=== PATIENT | male | born 1980 | race Caucasian/White ===

== ENCOUNTER 2016-07-08 16:39 | Inpatient (IN) | payer OTHER ==
--- NOTE | 2016-07-08 17:19 | ER Document Report ---
ED Medical Screen (RME) - General Stated Complaint: POSSIBLE SEIZURE Notes: patient yelled out and came to find him convulsing on the floor, no loss of bladder control. decreased appetite, diarrhea over the past couple of days. patient has a ? seizure history but non witnessed not diabetic heart rate 110. I have greeted and performed a rapid initial assessment of this patient. A comprehensive ED assessment and evaluation of the patient, analysis of test results and completion of the medical decision making process will be conducted by additional ED providers. TRAVEL OUTSIDE OF THE [place] IN LAST 30 DAYS: No - Related Data Allergies/Adverse Reactions: No Known Allergies Allergy (Verified 07/08/16 17:16) Past Medical History Psychiatric Medical History: Reports: Hx Anxiety, Hx Depression, Hx Post Traumatic Stress Disorder - Immunizations Hx Diphtheria, Pertussis, Tetanus Vaccination: Yes
[2016-07-08 17:43] LABS: ABSOLUTE LYMPHOCYTES (AUTO) 0.8 10^3/uL (0.5-4.7); ABSOLUTE MONOCYTES (AUTO) 0.9 10^3/uL (0.1-1.4); ABSOLUTE NEUT (AUTO) 7.3 10^3/uL (1.7-8.2); BASOPHILS % (AUTO) 0.2 % (0-2); EOSINOPHILS % (AUTO) 0.3 % (0-6); HEMATOCRIT 46.7 % (37.9-51.0); HEMOGLOBIN 16.1 g/dL (13.5-17.0); HGB HCT DIFFERENCE 1.6; LYMPHOCYTES % (AUTO) 8.8 % (13-45); MEAN CORPUSCULAR HEMOGLOBIN 31.7 pg (27.0-33.4); MEAN CORPUSCULAR HGB CONC 34.6 g/dL (32.0-36.0); MEAN CORPUSCULAR VOLUME 92 fl (80-97); MONOCYTES % (AUTO) 10.1 % (3-13); SEGMENTED NEUTROPHILS % (AUTO) 80.6 % (42-78); WHITE BLOOD COUNT 9.1 10^3/uL (4.0-10.5)
[2016-07-08 18:05] LABS: ALANINE AMINOTRANSFERASE 105 U/L (21-72); ALBUMIN 4.5 g/dL (3.5-5.0); ALKALINE PHOSPHATASE 65 U/L (38-126); ANION GAP 14 (5-19); ASPARTATE AMINO TRANSFERASE 227 U/L (17-59); BILIRUBIN,TOTAL 1.4 mg/dL (0.2-1.3); BLOOD UREA NITROGEN 9 mg/dL (7-20); CALCIUM 10.1 mg/dL (8.4-10.2); CARBON DIOXIDE 25 mmol/L (22-30); CHLORIDE 95 mmol/L (98-107); CREATININE RESULT 0.94 mg/dL (0.52-1.25); GLUCOSE 97 mg/dL (75-110); SODIUM 133.7 mmol/L (137-145); TOTAL PROTEIN 7.3 g/dL (6.3-8.2)
[2016-07-08] MEDS ORDERED: NORMAL SALINE 1000 ML 1,000 ML IV ONE (22:19)
[2016-07-08] MEDS ORDERED: DIAZEPAM INJ 10 MG/2 ML DISP.SYRIN IV ONE ×2 (22:19→23:15)
--- NOTE | 2016-07-08 22:23 | ER Document Report ---
ED General - General Chief Complaint: Probable Seizure Stated Complaint: POSSIBLE SEIZURE Notes: Patient is a 35-year-old male presents for complaint of seizure. I found him down on for shaking. Patient has a history of alcoholism. He is drink every day for last week. They tried to wean him off alcohol today. He had done a while without drinking any beer since this morning. on the floor seizing. Since then he started to have tremors and shakes. No previous history of seizures. No other complaints at this time. He did bite his tongue during the seizure. TRAVEL OUTSIDE OF THE [place] IN LAST 30 DAYS: No - Related Data Allergies/Adverse Reactions: No Known Allergies Allergy (Verified 07/08/16 17:16) Past Medical History - Social History Smoking Status: Current Every Day Smoker Chew tobacco use (# tins/day): Yes Frequency of alcohol use: None Drug Abuse: None Family History: None Patient has suicidal ideation: No Patient has homicidal ideation: No Renal/ Medical History: Denies: Hx Peritoneal Dialysis Psychiatric Medical History: Reports: Hx Anxiety, Hx Depression, Hx Post Traumatic Stress Disorder - Immunizations Hx Diphtheria, Pertussis, Tetanus Vaccination: Yes Review of Systems - Review of Systems Notes: My Normal Review Basic REVIEW OF SYSTEMS: CONSTITUTIONAL : Denies fever, chills, or sweats. Denies recent illness. EENT: Denies eye, ear, throat, or mouth pain or symptoms. Denies nasal or sinus congestion. RESPIRATORY: Denies cough, cold, or chest congestion. Denies shortness of breath, difficulty breathing, or wheezing. GASTROINTESTINAL: Denies abdominal pain. Denies nausea, vomiting, or diarrhea. Denies constipation. Last BM: MUSCULOSKELETAL: Denies neck or back pain or joint pain or swelling. SKIN: Denies rash or skin lesions. NEUROLOGICAL: Denies altered mental status or loss of consciousness. Seizure PSYCHIATRIC: Denies anxiety or stress or depression. ALL OTHER SYSTEMS REVIEWED AND NEGATIVE. Physical Exam - Vital signs Vitals: Temp Pulse BP Pulse Ox 98.4 F 128 H 132/89 H 100 07/08/16 16:54 07/08/16 16:54 07/08/16 16:54 07/08/16 16:54 - Notes Notes: General Appearance: Well nourished, alert, cooperative, anxious: no acute distress, no obvious discomfort. Vitals: reviewed, See vital signs table. Head: no swelling or tenderness to the head Eyes: PERRL, EOMI, Conjuctiva clear Mouth: No decreasd moisture Neck: Supple, no neck tenderness, No thyromegaly Lungs: No wheezing, No rales, No rhonci, No accessory muscle use, good air exchange bilaterally. Heart: Tachycardic rate, Regular rythm, No murmur, no rub Abdomen: Normal BS, soft, No rigidity, No abdominal tenderness, No guarding, no rebound, no abdominal masses, no organomegaly Extremities: strength 5/5 in all extremities, good pulses in all extremities, no swelling or tenderness in the extremities, no edema. Skin: warm, dry, appropriate color, no rash Neuro: speech clear, oriented x 3, normal affect, responds appropriately to questions. Active tremor Course - Vital Signs Vital signs: Temp Pulse Resp BP Pulse Ox 98.4 F 128 H 132/89 H 100 07/08/16 16:54 07/08/16 16:54 07/08/16 16:54 07/08/16 16:54 - Laboratory Result Diagrams: 07/08/16 17:25 07/08/16 17:25 Laboratory results interpreted by me: 07/08/16 07/08/16 07/08/16 17:25 17:25 17:25 RDW 16.0 H Plt Count 140 L Seg Neutrophils % 80.6 H Lymphocytes % 8.8 L Sodium 133.7 L Chloride 95 L Magnesium 2.7 H Total Bilirubin 1.4 H AST 227 H ALT 105 H - Transfer of Care Notes: 07/08/16 23:20 Patient's tremor is improved after the Valium. He is still a bit tachycardic. Given the final goes Valium. I suspect a seizure is related to alcohol withdrawal think that his started trying to wean down his alcohol intake of last 24 hours. When I saw him after reproducible Bactrim he had severe tremor consistent with focal withdrawal and was tachycardic. Tremors since decreased with the Valium. I feel is appropriate to admit the patient being that he's already had seizures from his withdrawal. I did speak with the hospitalist who agrees with the patient. Dictation of this chart was performed using voice recognition software; therefore, there may be some unintended grammatical errors. Discharge - Discharge Clinical Impression: Seizure Alcohol withdrawal Qualifiers: Complication of substance-induced condition: with unspecified complication Qualified Code(s): F10.239 - Alcohol dependence with withdrawal, unspecified Condition: Stable Disposition: ADMITTED OBSERVATION Admitting Provider: Hospitalist Unit Admitted: [facility]
[2016-07-08] MEDS ORDERED: THIAMINE HCL 100 MG in NORMAL SALINE 50 ML IV ONE (23:05)
[2016-07-08] MEDS ORDERED: FOLIC ACID INJ 5 MG/1 ML 10 ML VIAL IV ONE (23:05)
[2016-07-08] MEDS ORDERED: IPRATROPIUM/ALBUTEROL 0.5-2.5 MG/3 ML AMPUL NEB PRN (23:21)
[2016-07-08] MEDS ORDERED: ONDANSETRON HCL INJ/PF 4 MG/2 ML SDV IV PRN (23:21)
[2016-07-08] MEDS ORDERED: THIAMINE HCL INJ 200 MG/2 ML VIAL ONE (23:27)
[2016-07-08] MEDS ORDERED: NORMAL SALINE 1000 ML 1,000 ML IV SCH (23:30)
[2016-07-09] MEDS: LORAZEPAM INJ 2 MG/1 ML VIAL IV SCH ×5 (00:35→23:55)
[2016-07-09] MEDS: LORAZEPAM INJ 2 MG/1 ML VIAL IV PRN ×5 (02:58→22:27)
[2016-07-09] MEDS ORDERED: LORAZEPAM INJ 2 MG/1 ML VIAL ONE ×2 (03:58→04:30)
[2016-07-09] MEDS ORDERED: LORAZEPAM INJ 2 MG/1 ML VIAL IV ONE ×4 (04:00→23:00)
[2016-07-09] MEDS ORDERED: HALOPERIDOL LACTATE INJ 5 MG/1 ML VIAL ONE (04:31)
[2016-07-09] MEDS ORDERED: HALOPERIDOL LACTATE INJ 5 MG/1 ML VIAL IV ONE ×2 (04:45→19:31)
[2016-07-09] MEDS ORDERED: MORPHINE SULFATE 10 MG/ML INJ ONE (04:55)
[2016-07-09] MEDS ORDERED: MORPHINE SULFATE 10 MG/ML INJ IV ONE (05:00)
--- NOTE | 2016-07-09 05:11 | PDOC H&P ---
History of Present Illness Admission Date/PCP: 07/08/16 23:21 Patient complains of: Alcohol withdrawal seizure History of Present Illness: NURIA BECKWITH is a 35 year old male with a past medical history of posttraumatic stress disorder, anxiety and alcohol use of estimated 1/5 per day who had been weaning from alcohol with the assistance of his but became acutely agitated brought to the emergency room for evaluation and had a seizure in the ER waiting room resulting in tongue biting. He is subsequently received 15 mg of Valium, with a break of the seizure with a non-sustained postictal state developing recurrence of severe tachycardia and delirium 2 hours later receiving 12 mg of Ativan, 10 mg of Haldol and 10 mg of morphine with persistent severe agitation he is admitted to the hospitalist for ICU supportive care Past Medical History Cardiac Medical History: Reports: None Pulmonary Medical History: Reports: None EENT Medical History: Reports: None Neurological Medical History: Reports: None Endocrine Medical History: Reports: None Renal/ Medical History: Reports: None Malignancy Medical History: Reports: None GI Medical History: Reports: None Musculoskeltal Medical History: Reports: None Psychiatric Medical History: Reports: Alcohol Dependency, Depression, Post Traumatic Stress Disorder, Tobacco Dependency Social History Information Source: Relative Smoking Status: Current Every Day Smoker Cigarettes Packs Per Day: 0.5 Last Time Smoked: 07/08/16 Frequency of Alcohol Use: Heavy Hx Recreational Drug Use: No Drugs: None Hx Prescription Drug Abuse: No - Advance Directive Resuscitation Status: Full Code Family History Family History: None, Hypertension Parental Family History Reviewed: Yes Children Family History Reviewed: Yes Sibling(s) Family History Reviewed.: Yes Medication/Allergy Home Medications: No Home Medications 02/20/16 Allergies/Adverse Reactions: No Known Allergies Allergy (Verified 07/08/16 17:16) Review of Systems ROS unobtainable: Due to mental status Physical Exam Vital Signs: Temp Pulse Resp BP Pulse Ox 98.7 F 122 H 16 138/73 H 97 07/09/16 02:54 07/09/16 02:54 07/09/16 02:54 07/09/16 02:54 07/09/16 02:54 General appearance: PRESENT: disheveled, severe distress, thin Head exam: PRESENT: atraumatic, normocephalic Eye exam: PRESENT: conjunctiva pink, EOMI, PERRLA. ABSENT: scleral icterus Ear exam: PRESENT: normal external ear exam Mouth exam: PRESENT: other - Tongue laceration Neck exam: ABSENT: carotid bruit, JVD, lymphadenopathy, thyromegaly Respiratory exam: PRESENT: accessory muscle use, clear to auscultation mikey, tachypnea. ABSENT: rales, rhonchi, wheezes Cardiovascular exam: PRESENT: RRR, tachycardia. ABSENT: diastolic murmur, rubs , systolic murmur Pulses: PRESENT: normal dorsalis pedis pul Vascular exam: PRESENT: normal capillary refill GI/Abdominal exam: PRESENT: normal bowel sounds, soft. ABSENT: distended, guarding, mass, organolmegaly, rebound, tenderness Rectal exam: PRESENT: deferred Extremities exam: PRESENT: full ROM. ABSENT: calf tenderness, clubbing, pedal edema Neurological exam: PRESENT: altered, CN II-XII grossly intact Psychiatric exam: PRESENT: agitated, anxious, manic, unusual affect Focused psych exam: PRESENT: flight of ideas, internal stimuli, psychomotor agitation, restlessness Skin exam: PRESENT: dry, intact, warm. ABSENT: cyanosis, rash Assessment & Plan - Diagnosis (1) Alcohol withdrawal Qualifiers: Complication of substance-induced condition: with unspecified complication Qualified Code(s): F10.239 - Alcohol dependence with withdrawal, unspecified Is this a current diagnosis for this admission?: YesPlan: Severe alcohol withdrawal DTs is placed on thiamine folate, Ativan with concern for worsening despite aggressive treatment. Admission to ICU for anticipated intubation for airway protection (2) Seizure Is this a current diagnosis for this admission?: YesPlan: Secondary to alcohol withdrawal No prolonged postictal state and without recurrence continue IV Ativan (3) Tobacco abuse Is this a current diagnosis for this admission?: YesPlan: Tobacco Dependence patient received tobacco cessation counseling and offered nicotine replacement options
[2016-07-09] MEDS: HEPARIN SOD (PORCINE) 5,000 UNIT/ML 1 ML SYRINGE SUBCUT SCH ×2 (05:32→15:29)
[2016-07-09 07:55] LABS: ABSOLUTE EOSINOPHILS # (AUTO) 0.1 10^3/uL (0.0-0.6); ABSOLUTE LYMPHOCYTES (AUTO) 1.1 10^3/uL (0.5-4.7); ABSOLUTE MONOCYTES (AUTO) 0.9 10^3/uL (0.1-1.4); ABSOLUTE NEUT (AUTO) 7.5 10^3/uL (1.7-8.2); BASOPHILS % (AUTO) 0.2 % (0-2); EOSINOPHILS % (AUTO) 1.2 % (0-6); HEMATOCRIT 41.3 % (37.9-51.0); HEMOGLOBIN 14.1 g/dL (13.5-17.0); LYMPHOCYTES % (AUTO) 11.5 % (13-45); MEAN CORPUSCULAR HEMOGLOBIN 31.7 pg (27.0-33.4); MEAN CORPUSCULAR HGB CONC 34.1 g/dL (32.0-36.0); MEAN CORPUSCULAR VOLUME 93 fl (80-97); RED BLOOD COUNT 4.44 10^6/uL (4.35-5.55); RED CELL DISTRIBUTION WIDTH 15.9 % (11.5-14.0); SEGMENTED NEUTROPHILS % (AUTO) 78.1 % (42-78); WHITE BLOOD COUNT 9.7 10^3/uL (4.0-10.5)
[2016-07-09] MEDS ORDERED: IPRATROPIUM/ALBUTEROL 0.5-2.5 MG/3 ML AMPUL NEB SCH (08:00)
[2016-07-09 08:08] LABS: ALANINE AMINOTRANSFERASE 76 U/L (21-72); ALBUMIN 3.4 g/dL (3.5-5.0); ALKALINE PHOSPHATASE 48 U/L (38-126); ANION GAP 9 (5-19); ASPARTATE AMINO TRANSFERASE 132 U/L (17-59); BILIRUBIN,TOTAL 1.3 mg/dL (0.2-1.3); BLOOD UREA NITROGEN 8 mg/dL (7-20); CALCIUM 8.8 mg/dL (8.4-10.2); CARBON DIOXIDE 23 mmol/L (22-30); CHLORIDE 105 mmol/L (98-107); CREATININE RESULT 0.78 mg/dL (0.52-1.25); GLUCOSE 89 mg/dL (75-110); POTASSIUM 3.6 mmol/L (3.6-5.0); SODIUM 137.1 mmol/L (137-145); TOTAL PROTEIN 5.9 g/dL (6.3-8.2)
--- NOTE | 2016-07-09 09:48 | PDOC PROGRESS REPORT ---
Subjective Progress Note for:: 07/09/16 Subjective:: Patient is sedated and is unable to answer questions at this time. He is moving all 4 extremities without difficulty. No tonic-clonic movement Physical Exam Vital Signs: Temp Pulse Resp BP Pulse Ox 98.2 F 96 18 92/67 L 96 07/09/16 08:00 07/09/16 08:00 07/09/16 08:00 07/09/16 08:00 07/09/16 08:00 Intake & Output 07/08/16 07/09/16 07/10/16 06:59 06:59 06:59 Intake Total 0 Output Total 375 Balance 0 -375 Weight 76.8 kg 79.8 kg General appearance: PRESENT: no acute distress, well-developed, well-nourished Head exam: PRESENT: atraumatic, normocephalic Eye exam: PRESENT: conjunctiva pink, EOMI, PERRLA. ABSENT: scleral icterus Ear exam: PRESENT: normal external ear exam Neck exam: ABSENT: carotid bruit, JVD Respiratory exam: PRESENT: clear to auscultation mikey. ABSENT: rales, rhonchi, wheezes Cardiovascular exam: PRESENT: RRR. ABSENT: diastolic murmur, rubs, systolic murmur GI/Abdominal exam: PRESENT: normal bowel sounds, soft. ABSENT: distended, guarding, mass, organolmegaly, rebound, tenderness Extremities exam: ABSENT: calf tenderness, clubbing, pedal edema Neurological exam: PRESENT: other - Patient is sedated but moving all 4 extremities. Psychiatric exam: PRESENT: other - Patient is sedated Skin exam: PRESENT: dry, intact, warm. ABSENT: cyanosis, rash Results Laboratory Results: 07/09/16 07:41 07/09/16 07:41 07/09/16 07/09/16 07:41 07:41 WBC 9.7 RBC 4.44 Hgb 14.1 Hct 41.3 MCV 93 MCH 31.7 MCHC 34.1 RDW 15.9 H Plt Count 117 L Seg Neutrophils % 78.1 H Lymphocytes % 11.5 L Monocytes % 9.0 Eosinophils % 1.2 Basophils % 0.2 Absolute Neutrophils 7.5 Absolute Lymphocytes 1.1 Absolute Monocytes 0.9 Absolute Eosinophils 0.1 Absolute Basophils 0.0 Sodium 137.1 Potassium 3.6 Chloride 105 Carbon Dioxide 23 Anion Gap 9 BUN 8 Creatinine 0.78 Est GFR ( Amer) > 60 Est GFR (Non-Af Amer) > 60 Glucose 89 Calcium 8.8 Total Bilirubin 1.3 AST 132 H ALT 76 H Alkaline Phosphatase 48 Total Protein 5.9 L Albumin 3.4 L Assessment & Plan - Diagnosis (1) Seizure Is this a current diagnosis for this admission?: YesPlan: Patient had an alcohol withdrawal seizure. He said no further seizure activity. We'll continue with Ativan as needed. (2) Alcohol withdrawal Qualifiers: Complication of substance-induced condition: with unspecified complication Qualified Code(s): F10.239 - Alcohol dependence with withdrawal, unspecified Is this a current diagnosis for this admission?: YesPlan: Patient has developed delirium tremens requiring Ativan. He is currently sedated. (3) Tobacco abuse Is this a current diagnosis for this admission?: Yes - Time Time Spent with patient: 25-34 minutes - Inpatient Certification Medical Necessity: Need Close Monitoring Due to Risk of Patient Decompensation
[2016-07-09] MEDS: THIAMINE HCL 100 MG, FOLIC ACID 1 MG in NORMAL SALINE 50 ML IV SCH (11:08)
--- NOTE | 2016-07-09 12:33 | EKG REPORT ---
SEVERITY:- OTHERWISE NORMAL ECG - SINUS TACHYCARDIA BORDERLINE RIGHT AXIS DEVIATION : Confirmed by: Jacob George 09-Jul-2016 12:32:07
[2016-07-09] MEDS ORDERED: NICOTINE 14 MG/24 HR PATCH.TD24 TD ONE (16:00)
[2016-07-09] MEDS: HALOPERIDOL LACTATE INJ 5 MG/1 ML VIAL IV PRN (18:17)
[2016-07-09] MEDS ORDERED: ZIPRASIDONE MESYLATE INJ/PF 20 MG SDV IM ONE (20:30)
[2016-07-09] MEDS ORDERED: DIAZEPAM INJ 10 MG/2 ML DISP.SYRIN ONE (22:29)
[2016-07-09] MEDS ORDERED: DIAZEPAM INJ 10 MG/2 ML DISP.SYRIN IV ONE (23:00)
[2016-07-10] MEDS: LORAZEPAM INJ 2 MG/1 ML VIAL IV PRN ×2 (01:32→20:53)
[2016-07-10] MEDS: HALOPERIDOL LACTATE INJ 5 MG/1 ML VIAL IV PRN ×3 (01:33→20:00)
[2016-07-10 04:50] LABS: ABSOLUTE EOSINOPHILS # (AUTO) 0.1 10^3/uL (0.0-0.6); ABSOLUTE LYMPHOCYTES (AUTO) 1.1 10^3/uL (0.5-4.7); ABSOLUTE MONOCYTES (AUTO) 0.8 10^3/uL (0.1-1.4); ABSOLUTE NEUT (AUTO) 7.2 10^3/uL (1.7-8.2); BASOPHILS % (AUTO) 0.3 % (0-2); EOSINOPHILS % (AUTO) 1.3 % (0-6); HEMATOCRIT 42.6 % (37.9-51.0); HEMOGLOBIN 14.8 g/dL (13.5-17.0); HGB HCT DIFFERENCE 1.8; LYMPHOCYTES % (AUTO) 11.6 % (13-45); MEAN CORPUSCULAR HEMOGLOBIN 32.1 pg (27.0-33.4); MEAN CORPUSCULAR HGB CONC 34.7 g/dL (32.0-36.0); MEAN CORPUSCULAR VOLUME 93 fl (80-97); MONOCYTES % (AUTO) 8.7 % (3-13); RED BLOOD COUNT 4.61 10^6/uL (4.35-5.55); SEGMENTED NEUTROPHILS % (AUTO) 78.1 % (42-78); WHITE BLOOD COUNT 9.3 10^3/uL (4.0-10.5)
[2016-07-10 05:07] LABS: ANION GAP 13 (5-19); BLOOD UREA NITROGEN 5 mg/dL (7-20); CALCIUM 9.3 mg/dL (8.4-10.2); CARBON DIOXIDE 20 mmol/L (22-30); CHLORIDE 106 mmol/L (98-107); CREATININE RESULT 0.75 mg/dL (0.52-1.25); GLUCOSE 81 mg/dL (75-110); POTASSIUM 3.7 mmol/L (3.6-5.0); SODIUM 138.7 mmol/L (137-145)
[2016-07-10] MEDS: LORAZEPAM INJ 2 MG/1 ML VIAL IV SCH ×3 (05:23→18:34)
[2016-07-10] MEDS: HEPARIN SOD (PORCINE) 5,000 UNIT/ML 1 ML SYRINGE SUBCUT SCH ×3 (05:39→22:29)
[2016-07-10] MEDS ORDERED: LORAZEPAM 24 MG/240 ML BAG IV ONE (09:41)
[2016-07-10] MEDS: THIAMINE HCL 100 MG, FOLIC ACID 1 MG in NORMAL SALINE 50 ML IV SCH (10:01)
[2016-07-10] MEDS: LORAZEPAM 24 MG/ D5W 240 ML IV PRN ×4 (10:01→22:34)
[2016-07-10] MEDS: NICOTINE 14 MG/24 HR PATCH.TD24 TD SCH (10:02)
[2016-07-10] MEDS: ZIPRASIDONE MESYLATE INJ/PF 20 MG SDV IM SCH ×2 (10:03→21:02)
--- NOTE | 2016-07-10 12:09 | PDOC PROGRESS REPORT ---
Subjective Progress Note for:: 07/10/16 Subjective:: Patient is more alert today but is still confused. Required 4 point restraint. No tonic-clonic movement Physical Exam Vital Signs: Temp Pulse Resp BP Pulse Ox 97.7 F 84 17 127/79 H 100 07/10/16 11:00 07/10/16 10:00 07/10/16 11:00 07/10/16 10:31 07/10/16 11:00 Intake & Output 07/09/16 07/10/16 07/11/16 06:59 06:59 06:59 Intake Total 0 2220 360 Output Total 2235 120 Balance 0 -15 240 Weight 76.8 kg 78.6 kg General appearance: PRESENT: no acute distress, well-developed, well-nourished Head exam: PRESENT: atraumatic, normocephalic Eye exam: PRESENT: conjunctiva pink. ABSENT: scleral icterus Neck exam: ABSENT: JVD Respiratory exam: PRESENT: clear to auscultation mikey. ABSENT: rales, rhonchi, wheezes Cardiovascular exam: PRESENT: RRR. ABSENT: diastolic murmur, rubs, systolic murmur GI/Abdominal exam: PRESENT: normal bowel sounds, soft. ABSENT: distended, guarding, mass, organolmegaly, rebound, tenderness Extremities exam: ABSENT: calf tenderness, clubbing, pedal edema Neurological exam: PRESENT: awake, oriented to person, CN II-XII grossly intact. ABSENT: oriented to place, oriented to time, oriented to situation, motor sensory deficit Psychiatric exam: PRESENT: flat affect Skin exam: PRESENT: dry, intact, warm. ABSENT: cyanosis, rash Results Laboratory Results: 07/10/16 04:23 07/10/16 04:23 07/10/16 07/10/16 04:23 04:23 WBC 9.3 RBC 4.61 Hgb 14.8 Hct 42.6 MCV 93 MCH 32.1 MCHC 34.7 RDW 16.0 H Plt Count 117 L Seg Neutrophils % 78.1 H Lymphocytes % 11.6 L Monocytes % 8.7 Eosinophils % 1.3 Basophils % 0.3 Absolute Neutrophils 7.2 Absolute Lymphocytes 1.1 Absolute Monocytes 0.8 Absolute Eosinophils 0.1 Absolute Basophils 0.0 Sodium 138.7 Potassium 3.7 Chloride 106 Carbon Dioxide 20 L Anion Gap 13 BUN 5 L Creatinine 0.75 Est GFR ( Amer) > 60 Est GFR (Non-Af Amer) > 60 Glucose 81 Calcium 9.3 Assessment & Plan - Diagnosis (1) Seizure Is this a current diagnosis for this admission?: YesPlan: Patient had an alcohol withdrawal seizure. He said no further seizure activity. We'll continue with Ativan as needed. (2) Alcohol withdrawal Qualifiers: Complication of substance-induced condition: with unspecified complication Qualified Code(s): F10.239 - Alcohol dependence with withdrawal, unspecified Is this a current diagnosis for this admission?: YesPlan: Patient has developed delirium tremens requiring Ativan. He is confused and because of this we will have him involuntary committed for his safety he is trying to leave but is not competent at this time. (3) Tobacco abuse Is this a current diagnosis for this admission?: Yes - Time Time Spent with patient: 25-34 minutes - Inpatient Certification Medical Necessity: Need Close Monitoring Due to Risk of Patient Decompensation - Plan Summary Plan Summary: We will place IVC papers and continue with Ativan and restraints as needed.
--- NOTE | 2016-07-10 15:36 | PSYCHOLOGICAL NOTE ---
Psych Note - Psych Note Psych Note: Patient presented to [facility] ED with a past medical history of posttraumatic stress disorder, anxiety and alcohol use of estimated 1/5 per day who had been weaning from alcohol with the assistance of his but became acutely agitated brought to the emergency room for evaluation and had a seizure in the ER waiting room resulting in tongue biting. Patient states that he had been drinking beer because of the shakes. He continued to disclose that he had for morning. Patient states he is at [facility] ED because he had a seizure. Patient's max Early states that Jordy used to drink about a fifth of day. She continued disclosed that he had been trying to cut down and first cut down to a pint a day and then for the last couple months and had only been drinking beer. She continue to disclosed that he really would drink only to cover up the shakes because he was embarrassed for people to see him shaking. She continue disclosed that she noticed him shaking Tuesday and he had 2 or 3 beers. And then Tuesday he approximately 4 but that he spent threw up afterwards. She disclosed that she was downstairs while he was upstairs because he was not feeling well when she heard him yelling out "like he was in fear." She stated she went into the room and saw him "convulsing on the floor" which lasted approximately 3 minutes long. She disclose that he bit the left side of his tongue. She continued disclosed the patient has been trying to quit however would like inpatient services and that the family has gotten together and upon discharge will be admitting him into rehabilitation facility in [place]. She disclosed that his family is in [place], so they will be close if he needs them. She stated their house here just got an offer so she will be finishing up here in [place] and then moved down to [place] after. The patient states he wants in patient and agrees to the plan. Both patient and patient's ildefonso disclosed the patient has difficulty with PTSD-like symptoms he becomes paranoid in crowds has started to isolate himself and now only leaves home about once a week however sometimes even then he does not leave. The patient stated "they were eyeballing me" when they're in a store so it made him nervous. Patient is semi-alert and orientated to person place and circumstance. Mood and affect is blunted from current medical treatment. Patient denies suicidal homicidal ideation. Patient denies auditory and visual hallucinations; no current delusions are noted. Cognitive processes are blunted from current medical treatment. Conversational speech is low and it is slow rate. Eye contact was poor. 291.81 (F10.239) alcohol withdraw; without perceptual disturbances PTSD per history provided by patient Impression\\plan: Patient is recommended to continue under IVC; patient's cognitive functioning is impaired due to delirium associated with withdrawal from alcohol and his unable to keep himself safe. Patient has a discharge plan set up with his family to transfer straight into inpatient for alcohol abuse in [place]. Dr. Vazquez was consulted on the care and management of this patient; attending physician is in agreement with recommendations and disposition.
[2016-07-11] MEDS: LORAZEPAM 24 MG/ D5W 240 ML IV PRN ×11 (00:16→22:14)
[2016-07-11] MEDS: LORAZEPAM INJ 2 MG/1 ML VIAL IV SCH ×5 (00:18→23:29)
[2016-07-11] MEDS: HALOPERIDOL LACTATE INJ 5 MG/1 ML VIAL IV PRN ×2 (03:12→21:44)
[2016-07-11] MEDS: HEPARIN SOD (PORCINE) 5,000 UNIT/ML 1 ML SYRINGE SUBCUT SCH ×3 (05:28→21:43)
[2016-07-11 07:44] LABS: ANION GAP 13 (5-19); BLOOD UREA NITROGEN 7 mg/dL (7-20); CALCIUM 9.3 mg/dL (8.4-10.2); CARBON DIOXIDE 20 mmol/L (22-30); CHLORIDE 106 mmol/L (98-107); CREATININE RESULT 0.78 mg/dL (0.52-1.25); GLUCOSE 85 mg/dL (75-110); POTASSIUM 3.9 mmol/L (3.6-5.0); SODIUM 138.9 mmol/L (137-145)
[2016-07-11 07:46] LABS: ABSOLUTE EOSINOPHILS # (AUTO) 0.2 10^3/uL (0.0-0.6); ABSOLUTE LYMPHOCYTES (AUTO) 1.2 10^3/uL (0.5-4.7); ABSOLUTE MONOCYTES (AUTO) 0.8 10^3/uL (0.1-1.4); ABSOLUTE NEUT (AUTO) 4.8 10^3/uL (1.7-8.2); BASOPHILS % (AUTO) 0.7 % (0-2); EOSINOPHILS % (AUTO) 2.8 % (0-6); HEMATOCRIT 42.1 % (37.9-51.0); HEMOGLOBIN 14.6 g/dL (13.5-17.0); HGB HCT DIFFERENCE 1.7; LYMPHOCYTES % (AUTO) 16.7 % (13-45); MEAN CORPUSCULAR HGB CONC 34.7 g/dL (32.0-36.0); MEAN CORPUSCULAR VOLUME 92 fl (80-97); MONOCYTES % (AUTO) 11.5 % (3-13); RED BLOOD COUNT 4.56 10^6/uL (4.35-5.55); RED CELL DISTRIBUTION WIDTH 16.1 % (11.5-14.0); SEGMENTED NEUTROPHILS % (AUTO) 68.3 % (42-78)
[2016-07-11] MEDS: LORAZEPAM INJ 2 MG/1 ML VIAL IV PRN (07:55)
[2016-07-11] MEDS: ZIPRASIDONE MESYLATE INJ/PF 20 MG SDV IM SCH ×2 (09:42→21:43)
[2016-07-11] MEDS: THIAMINE HCL 100 MG, FOLIC ACID 1 MG in NORMAL SALINE 50 ML IV SCH (09:43)
[2016-07-11] MEDS: NICOTINE 14 MG/24 HR PATCH.TD24 TD SCH (09:43)
--- NOTE | 2016-07-11 10:55 | PDOC PROGRESS REPORT ---
Subjective Progress Note for:: 07/11/16 Subjective:: Patient is confused. He is on high-dose Ativan drip. Physical Exam Vital Signs: Temp Pulse Resp BP Pulse Ox 97.5 F 80 18 129/89 H 95 07/11/16 10:00 07/11/16 10:00 07/11/16 10:00 07/11/16 10:00 07/11/16 10:00 Intake & Output 07/10/16 07/11/16 07/12/16 06:59 06:59 06:59 Intake Total 2220 1845 Output Total 2235 4730 78 Balance -15 -735 -78 Weight 78.6 kg 80.2 kg General appearance: PRESENT: no acute distress Eye exam: PRESENT: conjunctiva pink. ABSENT: scleral icterus Mouth exam: PRESENT: moist, tongue midline Neck exam: ABSENT: carotid bruit, JVD, lymphadenopathy, thyromegaly Respiratory exam: PRESENT: clear to auscultation mikey. ABSENT: rales, rhonchi, wheezes Cardiovascular exam: PRESENT: RRR. ABSENT: diastolic murmur, rubs, systolic murmur GI/Abdominal exam: PRESENT: normal bowel sounds, soft. ABSENT: distended, guarding, mass, organolmegaly, rebound, tenderness Neurological exam: PRESENT: awake, oriented to person, CN II-XII grossly intact. ABSENT: oriented to place, oriented to time, oriented to situation, motor sensory deficit Skin exam: PRESENT: dry, intact, warm. ABSENT: cyanosis, rash Results Laboratory Results: 07/11/16 04:55 07/11/16 04:55 07/11/16 07/11/16 04:55 04:55 WBC 7.0 RBC 4.56 Hgb 14.6 Hct 42.1 MCV 92 MCH 32.0 MCHC 34.7 RDW 16.1 H Plt Count 149 L Seg Neutrophils % 68.3 Lymphocytes % 16.7 Monocytes % 11.5 Eosinophils % 2.8 Basophils % 0.7 Absolute Neutrophils 4.8 Absolute Lymphocytes 1.2 Absolute Monocytes 0.8 Absolute Eosinophils 0.2 Absolute Basophils 0.0 Sodium 138.9 Potassium 3.9 Chloride 106 Carbon Dioxide 20 L Anion Gap 13 BUN 7 Creatinine 0.78 Est GFR ( Amer) > 60 Est GFR (Non-Af Amer) > 60 Glucose 85 Calcium 9.3 Assessment & Plan - Diagnosis (1) Seizure Is this a current diagnosis for this admission?: YesPlan: Patient had an alcohol withdrawal seizure. He said no further seizure activity. We'll continue with Ativan drip. (2) Alcohol withdrawal Qualifiers: Complication of substance-induced condition: with unspecified complication Qualified Code(s): F10.239 - Alcohol dependence with withdrawal, unspecified Is this a current diagnosis for this admission?: YesPlan: Patient has developed delirium tremens requiring Ativan. Patient has had IVC papers done (3) Tobacco abuse Is this a current diagnosis for this admission?: Yes - Time Time Spent with patient: 25-34 minutes - Inpatient Certification Medical Necessity: Need Close Monitoring Due to Risk of Patient Decompensation - Plan Summary Plan Summary: We'll continue the ICU as long as he is requiring high-dose Ativan drip.
[2016-07-12] MEDS: LORAZEPAM 24 MG/ D5W 240 ML IV PRN ×6 (00:15→18:26)
[2016-07-12 04:52] LABS: ABSOLUTE BASOPHILS # (AUTO) 0.1 10^3/uL (0.0-0.2); ABSOLUTE EOSINOPHILS # (AUTO) 0.2 10^3/uL (0.0-0.6); ABSOLUTE LYMPHOCYTES (AUTO) 1.2 10^3/uL (0.5-4.7); ABSOLUTE MONOCYTES (AUTO) 0.9 10^3/uL (0.1-1.4); ABSOLUTE NEUT (AUTO) 3.7 10^3/uL (1.7-8.2); BASOPHILS % (AUTO) 1.1 % (0-2); EOSINOPHILS % (AUTO) 3.3 % (0-6); HEMATOCRIT 42.9 % (37.9-51.0); HEMOGLOBIN 14.8 g/dL (13.5-17.0); HGB HCT DIFFERENCE 1.5; LYMPHOCYTES % (AUTO) 19.8 % (13-45); MEAN CORPUSCULAR HEMOGLOBIN 31.9 pg (27.0-33.4); MEAN CORPUSCULAR HGB CONC 34.6 g/dL (32.0-36.0); MEAN CORPUSCULAR VOLUME 92 fl (80-97); MONOCYTES % (AUTO) 15.3 % (3-13); RED BLOOD COUNT 4.65 10^6/uL (4.35-5.55); RED CELL DISTRIBUTION WIDTH 15.9 % (11.5-14.0); SEGMENTED NEUTROPHILS % (AUTO) 60.5 % (42-78); WHITE BLOOD COUNT 6.1 10^3/uL (4.0-10.5)
[2016-07-12 05:11] LABS: ANION GAP 12 (5-19); BLOOD UREA NITROGEN 4 mg/dL (7-20); CALCIUM 9.5 mg/dL (8.4-10.2); CARBON DIOXIDE 23 mmol/L (22-30); CHLORIDE 105 mmol/L (98-107); CREATININE RESULT 0.76 mg/dL (0.52-1.25); GLUCOSE 94 mg/dL (75-110); POTASSIUM 3.4 mmol/L (3.6-5.0); SODIUM 139.7 mmol/L (137-145)
[2016-07-12] MEDS: LORAZEPAM INJ 2 MG/1 ML VIAL IV SCH ×4 (05:24→23:23)
[2016-07-12] MEDS: HEPARIN SOD (PORCINE) 5,000 UNIT/ML 1 ML SYRINGE SUBCUT SCH ×3 (06:05→21:16)
[2016-07-12] MEDS: POTASSI CL 20 MEQ/50 ML RIDER 20 MEQ/50 ML RTUPB IV SCH ×2 (09:08→11:35)
[2016-07-12] MEDS: THIAMINE HCL 100 MG, FOLIC ACID 1 MG in NORMAL SALINE 50 ML IV SCH (09:11)
[2016-07-12] MEDS: NICOTINE 14 MG/24 HR PATCH.TD24 TD SCH (09:11)
[2016-07-12] MEDS: ZIPRASIDONE MESYLATE INJ/PF 20 MG SDV IM SCH (10:52)
[2016-07-12] MEDS ORDERED: ACETAMINOPHEN 325 MG TABLET PO PRN (13:59)
[2016-07-12] MEDS ORDERED: OXYCODONE HCL IR 5 MG TABLET PO PRN (13:59)
--- NOTE | 2016-07-12 15:12 | PDOC PROGRESS REPORT ---
Subjective Progress Note for:: 07/12/16 Subjective:: Patient is confused. He is on high-dose Ativan drip. Physical Exam Vital Signs: Temp Pulse Resp BP Pulse Ox 97.4 F 86 21 H 123/96 H 95 07/12/16 14:00 07/12/16 07:40 07/12/16 07:40 07/12/16 07:40 07/12/16 07:40 Intake & Output 07/11/16 07/12/16 07/13/16 06:59 06:59 06:59 Intake Total 2695 2951 356 Output Total 2580 0835 425 Balance 115 -824 -69 Weight 80.2 kg General appearance: PRESENT: no acute distress Eye exam: PRESENT: conjunctiva pink. ABSENT: scleral icterus Mouth exam: PRESENT: moist, tongue midline Neck exam: ABSENT: JVD Respiratory exam: PRESENT: clear to auscultation mikey. ABSENT: rales, rhonchi, wheezes Cardiovascular exam: PRESENT: RRR. ABSENT: diastolic murmur, rubs, systolic murmur GI/Abdominal exam: PRESENT: normal bowel sounds, soft. ABSENT: distended, guarding, mass, organolmegaly, rebound, tenderness Extremities exam: ABSENT: calf tenderness, clubbing, pedal edema Neurological exam: PRESENT: awake, oriented to person, CN II-XII grossly intact. ABSENT: oriented to place, oriented to time, oriented to situation, motor sensory deficit Psychiatric exam: PRESENT: unusual affect Skin exam: PRESENT: dry, intact, warm. ABSENT: cyanosis, rash Results Laboratory Results: 07/12/16 04:13 07/12/16 04:13 07/12/16 07/12/16 04:13 04:13 WBC 6.1 RBC 4.65 Hgb 14.8 Hct 42.9 MCV 92 MCH 31.9 MCHC 34.6 RDW 15.9 H Plt Count 223 Seg Neutrophils % 60.5 Lymphocytes % 19.8 Monocytes % 15.3 H Eosinophils % 3.3 Basophils % 1.1 Absolute Neutrophils 3.7 Absolute Lymphocytes 1.2 Absolute Monocytes 0.9 Absolute Eosinophils 0.2 Absolute Basophils 0.1 Sodium 139.7 Potassium 3.4 L Chloride 105 Carbon Dioxide 23 Anion Gap 12 BUN 4 L Creatinine 0.76 Est GFR ( Amer) > 60 Est GFR (Non-Af Amer) > 60 Glucose 94 Calcium 9.5 Magnesium 2.0 Assessment & Plan - Diagnosis (1) Seizure Is this a current diagnosis for this admission?: YesPlan: Patient had an alcohol withdrawal seizure. He said no further seizure activity. We'll continue with Ativan drip. (2) Alcohol withdrawal Qualifiers: Complication of substance-induced condition: with unspecified complication Qualified Code(s): F10.239 - Alcohol dependence with withdrawal, unspecified Is this a current diagnosis for this admission?: YesPlan: Patient has developed delirium tremens requiring Ativan. We'll continue to try to wean down the Ativan drip as tolerated. Patient has had IVC papers done (3) Tobacco abuse Is this a current diagnosis for this admission?: Yes - Time Time Spent with patient: 25-34 minutes - Inpatient Certification Medical Necessity: Need Close Monitoring Due to Risk of Patient Decompensation - Plan Summary Plan Summary: We'll continue to wean down the Ativan drip. Once he is off Ativan drip he can be transferred to the floor. Patient has been seen by psychiatry.
[2016-07-13 04:37] LABS: ABSOLUTE BASOPHILS # (AUTO) 0.1 10^3/uL (0.0-0.2); ABSOLUTE EOSINOPHILS # (AUTO) 0.2 10^3/uL (0.0-0.6); ABSOLUTE LYMPHOCYTES (AUTO) 1.2 10^3/uL (0.5-4.7); ABSOLUTE MONOCYTES (AUTO) 1.1 10^3/uL (0.1-1.4); BASOPHILS % (AUTO) 1.1 % (0-2); EOSINOPHILS % (AUTO) 2.9 % (0-6); HEMATOCRIT 40.6 % (37.9-51.0); HEMOGLOBIN 14.2 g/dL (13.5-17.0); LYMPHOCYTES % (AUTO) 18.5 % (13-45); MEAN CORPUSCULAR HEMOGLOBIN 32.1 pg (27.0-33.4); MEAN CORPUSCULAR VOLUME 92 fl (80-97); RED BLOOD COUNT 4.41 10^6/uL (4.35-5.55); RED CELL DISTRIBUTION WIDTH 15.8 % (11.5-14.0); SEGMENTED NEUTROPHILS % (AUTO) 60.5 % (42-78); WHITE BLOOD COUNT 6.6 10^3/uL (4.0-10.5)
[2016-07-13 04:49] LABS: ANION GAP 9 (5-19); BLOOD UREA NITROGEN 6 mg/dL (7-20); CALCIUM 9.3 mg/dL (8.4-10.2); CARBON DIOXIDE 23 mmol/L (22-30); CHLORIDE 107 mmol/L (98-107); CREATININE RESULT 0.81 mg/dL (0.52-1.25); GLUCOSE 88 mg/dL (75-110); POTASSIUM 3.8 mmol/L (3.6-5.0); SODIUM 138.5 mmol/L (137-145)
[2016-07-13] MEDS: LORAZEPAM INJ 2 MG/1 ML VIAL IV SCH ×4 (05:22→23:13)
[2016-07-13] MEDS: HEPARIN SOD (PORCINE) 5,000 UNIT/ML 1 ML SYRINGE SUBCUT SCH ×3 (05:23→21:24)
[2016-07-13] MEDS: LORAZEPAM 24 MG/ D5W 240 ML IV PRN ×2 (06:59→21:24)
[2016-07-13] MEDS: LORAZEPAM INJ 2 MG/1 ML VIAL IV PRN (07:43)
--- NOTE | 2016-07-13 08:08 | PDOC PROGRESS REPORT ---
Subjective Progress Note for:: 07/13/16 Subjective:: Patient awake and alert, able to respond, but slow. Patient reports some drowsiness. Denies any chills or fever. Denies pain or discomfort at this time. Denies having any diarrhea. Patient didn't remember what happened when he came to the hospital. He reports he was having seizures. He remains on the Ativan drip. Able to eat and tolerating oral intake. Physical Exam Vital Signs: Temp Pulse Resp BP Pulse Ox 98.6 F 77 21 H 124/91 H 97 07/12/16 20:00 07/13/16 07:24 07/13/16 06:07 07/13/16 06:07 07/13/16 06:06 Intake & Output 07/12/16 07/13/16 07/14/16 06:59 06:59 06:59 Intake Total 2951 2604 Output Total 3775 1640 Balance -824 964 Weight 75.9 kg General appearance: PRESENT: no acute distress, cooperative Head exam: PRESENT: normocephalic Eye exam: PRESENT: EOMI Mouth exam: PRESENT: moist, neck supple Neck exam: ABSENT: JVD Respiratory exam: PRESENT: unlabored. ABSENT: rales, rhonchi, wheezes Cardiovascular exam: PRESENT: RRR. ABSENT: gallop GI/Abdominal exam: PRESENT: soft. ABSENT: distended, tenderness Extremities exam: ABSENT: pedal edema Neurological exam: PRESENT: alert, awake, other Skin exam: PRESENT: dry, warm. ABSENT: cyanosis Results Laboratory Results: 07/13/16 04:03 07/13/16 04:03 07/13/16 07/13/16 04:03 04:03 WBC 6.6 RBC 4.41 Hgb 14.2 Hct 40.6 MCV 92 MCH 32.1 MCHC 35.0 RDW 15.8 H Plt Count 290 Seg Neutrophils % 60.5 Lymphocytes % 18.5 Monocytes % 17.0 H Eosinophils % 2.9 Basophils % 1.1 Absolute Neutrophils 4.0 Absolute Lymphocytes 1.2 Absolute Monocytes 1.1 Absolute Eosinophils 0.2 Absolute Basophils 0.1 Sodium 138.5 Potassium 3.8 Chloride 107 Carbon Dioxide 23 Anion Gap 9 BUN 6 L Creatinine 0.81 Est GFR ( Amer) > 60 Est GFR (Non-Af Amer) > 60 Glucose 88 Calcium 9.3 Assessment & Plan - Diagnosis (1) Alcohol withdrawal Qualifiers: Complication of substance-induced condition: with unspecified complication Qualified Code(s): F10.239 - Alcohol dependence with withdrawal, unspecified Is this a current diagnosis for this admission?: Yes (2) Seizure Is this a current diagnosis for this admission?: Yes (3) Abnormal liver function test Is this a current diagnosis for this admission?: Yes (4) PTSD (post-traumatic stress disorder) Is this a current diagnosis for this admission?: Yes (5) Anxiety and depression Is this a current diagnosis for this admission?: Yes - Time Time Spent with patient: 25-34 minutes - Plan Summary Plan Summary: Continue hydration and supplements. Patient seems to be tolerating oral intake. We will wean Ativan drip to off and just maintain him on as needed intravenous Ativan. We will monitor electrolytes. Continue supportive care. Patient on IVC.
[2016-07-13] MEDS: NICOTINE 14 MG/24 HR PATCH.TD24 TD SCH (09:26)
[2016-07-13] MEDS: THIAMINE HCL 100 MG, FOLIC ACID 1 MG in NORMAL SALINE 50 ML IV SCH (09:27)
[2016-07-14 04:35] LABS: ANION GAP 7 (5-19); BLOOD UREA NITROGEN 11 mg/dL (7-20); CALCIUM 9.7 mg/dL (8.4-10.2); CARBON DIOXIDE 27 mmol/L (22-30); CHLORIDE 103 mmol/L (98-107); CREATININE RESULT 0.85 mg/dL (0.52-1.25); GLUCOSE 86 mg/dL (75-110); PHOSPHORUS 4.2 mg/dL (2.5-4.5); POTASSIUM 4.2 mmol/L (3.6-5.0); SODIUM 137.1 mmol/L (137-145)
[2016-07-14] MEDS: HEPARIN SOD (PORCINE) 5,000 UNIT/ML 1 ML SYRINGE SUBCUT SCH ×3 (04:53→22:31)
[2016-07-14] MEDS: LORAZEPAM INJ 2 MG/1 ML VIAL IV SCH (04:57)
[2016-07-14] MEDS: NICOTINE 14 MG/24 HR PATCH.TD24 TD SCH (09:28)
[2016-07-14] MEDS: THIAMINE HCL 100 MG, FOLIC ACID 1 MG in NORMAL SALINE 50 ML IV SCH (09:28)
--- NOTE | 2016-07-14 10:11 | PDOC PROGRESS REPORT ---
Subjective Progress Note for:: 07/14/16 Subjective:: Patient awake and alert, able to respond better. Off Ativan drip. Denies any chills or fever. Denies having any diarrhea. He has chronic back pain issues . Patient didn't remember what happened when he came to the hospital. Able to eat and tolerating oral intake. Physical Exam Vital Signs: Temp Pulse Resp BP Pulse Ox 98.2 F 106 H 19 110/64 98 07/13/16 16:00 07/14/16 07:54 07/14/16 08:05 07/14/16 08:05 07/14/16 06:00 Intake & Output 07/13/16 07/14/16 07/15/16 06:59 06:59 06:59 Intake Total 2604 1215 Output Total 1640 1540 Balance 964 -325 Weight 75.9 kg 76.1 kg General appearance: PRESENT: no acute distress, cooperative Head exam: PRESENT: normocephalic Eye exam: PRESENT: EOMI Mouth exam: PRESENT: moist, neck supple Neck exam: ABSENT: JVD Respiratory exam: PRESENT: clear to auscultation mikey. ABSENT: rhonchi, wheezes Cardiovascular exam: PRESENT: RRR. ABSENT: gallop GI/Abdominal exam: PRESENT: normal bowel sounds, soft. ABSENT: distended, tenderness Extremities exam: ABSENT: pedal edema Neurological exam: PRESENT: alert, awake, oriented to situation, other - No tremors noted Skin exam: PRESENT: dry, warm. ABSENT: cyanosis Results Laboratory Results: 07/13/16 04:03 07/14/16 03:56 07/14/16 03:56 Sodium 137.1 Potassium 4.2 Chloride 103 Carbon Dioxide 27 Anion Gap 7 BUN 11 Creatinine 0.85 Est GFR ( Amer) > 60 Est GFR (Non-Af Amer) > 60 Glucose 86 Calcium 9.7 Phosphorus 4.2 Magnesium 2.0 Assessment & Plan - Diagnosis (1) Alcohol withdrawal Qualifiers: Complication of substance-induced condition: with unspecified complication Qualified Code(s): F10.239 - Alcohol dependence with withdrawal, unspecified Is this a current diagnosis for this admission?: Yes (2) Seizure Is this a current diagnosis for this admission?: Yes (3) Abnormal liver function test Is this a current diagnosis for this admission?: Yes (4) PTSD (post-traumatic stress disorder) Is this a current diagnosis for this admission?: Yes (5) Anxiety and depression Is this a current diagnosis for this admission?: Yes - Time Time Spent with patient: 25-34 minutes - Plan Summary Plan Summary: We will transfer the patient to medical floor with telemetry. We will discontinue the Huber catheter. Advance his diet. Reconsult psychiatry, recent reportedly on IVC. Discontinue Ativan. Continue when necessary oxycodone.
--- NOTE | 2016-07-14 12:23 | PSYCHOLOGICAL NOTE ---
Psych Note - Psych Note Psych Note: Patient is a 35-year-old male who is admitted to [facility] hospitalist services for acute alcohol withdrawal related symptoms. Patient presents with a past medical history of posttraumatic stress disorder, anxiety and alcohol use of estimated 1/5 per day. Patient has been evaluated by psychiatry and there is a current plan of care in place for patient to go directly to alcohol treatment in [place], per the family. Today's evaluation is to determine if patient continues to meet criteria for involuntary commitment. Patient does deny suicidal/homicidal ideations, intent, plan, means. Patient is able to review part of his course of treatment to include withdrawal related seizures requiring admission to ICU. Patient states he plans to go to [facility] to a [place] for [place] treatment. Patient states he has achieved sobriety in the past for a number of weeks, has continually relapsed. Patient identifies his girlfriend as his #1 support individual. He states he refers to her as his spouse even though she is still legally to another individual. Patient reports his brother is a psychologist and his father as a counselor, and both are encouraging him to explore his PTSD and possible ADD symptoms. Patient discusses an episode a few months ago where he was suffering read current nightmares related to his service connected trauma. Patient states he began hallucinating and was hearing voices. Patient states he attempted to seek assistance through the emergency room but was referred elsewhere. Patient reports he did follow-up through the [facility] clinic, which is where he states he plans to continue to follow up for outpatient treatment once discharged from the facility in [place]. Patient states he understands he may not actually physically get on a plane to go to [place] from this hospital, and that there may be a few days of intermittent time at home. Patient again denies suicidal/homicidal ideations, intent, plan, means. Patient reports he is wanting to get help and feels as though he is still really supported to do so. Patient is alert and oriented 4. Mood is euthymic with normal affect. Patient denies suicidal/homicidal ideations, intent, plan, means. Patient denies A/VH; delusions not noted. Thought processes were organized. Conversational speech was low and slow for prosody. Intellectual abilities were estimated within average range. Attention and focus were fair. Insight, judgment, impulse control were fair. Alcohol Use Disorder, Recurrent, Severe Posttraumatic Stress Disorder, per history Patient is psychiatrically cleared and recommended for rescind IVC. Patient no longer meets criteria for IVC as he denies suicidal/homicidal ideations and is not experiencing any hallucinations which would prevent and/or impaired judgment. Patient reports he wants to go to treatment in [place], and has the encouragement from his family and loved ones. Patient additionally reports he plans to follow-up with the [place] clinic upon returning to [place]. Did provide patient with resources so he may pursue all his options should he choose to do so. I consulted with Dr. Vazquez in regards to the care and management of this patient. Hospitalist made aware disposition and recommendations.
[2016-07-15] MEDS: HEPARIN SOD (PORCINE) 5,000 UNIT/ML 1 ML SYRINGE SUBCUT SCH (05:52)
--- NOTE | 2016-07-15 08:12 | EKG REPORT ---
SEVERITY:- NORMAL ECG - SINUS RHYTHM : Confirmed by: Viridiana Thompson MD 15-Jul-2016 08:12:06
[2016-07-15 09:24] VITALS: BP 129/73
[2016-07-15] MEDS: THIAMINE HCL 100 MG, FOLIC ACID 1 MG in NORMAL SALINE 50 ML IV SCH (10:03)
[2016-07-15] MEDS: NICOTINE 14 MG/24 HR PATCH.TD24 TD SCH (10:03)
--- NOTE | 2016-07-15 11:13 | PDOC DISCHARGE SUMMARY ---
General - Admit/Disc Date/PCP Admission Date/Primary Care Provider: 07/08/16 23:21 Discharge Date: 07/15/16 - Discharge Diagnosis (1) Alcohol withdrawal Is this a current diagnosis for this admission?: Yes (2) Seizure Is this a current diagnosis for this admission?: Yes (3) Abnormal liver function test Is this a current diagnosis for this admission?: Yes (4) PTSD (post-traumatic stress disorder) Is this a current diagnosis for this admission?: Yes (5) Anxiety and depression Is this a current diagnosis for this admission?: Yes (6) Chronic back pain Is this a current diagnosis for this admission?: Yes - Additional Information Resuscitation Status: Full Code Discharge Diet: Regular Discharge Activity: Activity As Tolerated, Balance Activity w/Rest Home Medications: Folic Acid 1 mg PO DAILY #30 tablet 07/15/16 Multivitamin [Daily Multiple Vitamin] 1 each PO DAILY #30 tablet 07/15/16 Oxycodone HCl [Oxy-Ir 5 mg Tablet] 5 mg PO Q6HP PRN #20 tablet 07/15/16 Thiamine HCl [Thiamine 100 mg Tablet] 100 mg PO DAILY #30 tablet 07/15/16 Additional Information: Stop alcohol. Follow-up at the alcohol rehabilitation program in 1-2 weeks. History of Present Illness Patient complains of: Alcohol withdrawal History of Present Illness: NURIA BECKWITH is a 35 year old male with history of PTSD, as well as alcohol abuse brought to the emergency room because of agitation and withdrawal symptoms from alcohol with associated seizure. Patient was given Valium, Ativan , and Haldol and eventually was referred for admission. For details please refer to history and physical examination performed by the admitting physician. Hospital Course Hospital Course: The patient was admitted to the intensive care unit. No reported seizure activity was noted. Patient initially was placed on as needed Ativan and supplemental thiamine folic acid and multivitamin. Patient was hydrated with intravenous fluid. Eventually the patient developed delirium tremens and became agitated on which he was involuntarily committed and began on intravenous Ativan drip. He was evaluated by psychiatry service. Patient was maintained in the intensive care units. Eventually the patient's delirium tremens improved. Intravenous Ativan drip was weaned successfully after several days. He has complained of back pain. He was given oxycodone for pain relief. Patient apparently had chronic back pain and reportedly oxycodone helps him before. Ativan drip eventually discontinued and the patient's mental status continued to improve, diet was began, patient was able to ambulate around. Psychiatry reevaluated the patient will eventually cleared the patient from involuntary commitment and this was rescinded. His family was informed as arranging for him to go for alcohol rehabilitation program in [place]. At this point the patients withdrawal resolve and he was eventually discharged. The rest of the hospital stays unremarkable. Physical Exam Vital Signs: Temp Pulse Resp BP Pulse Ox 98.3 F 80 16 129/73 H 98 07/15/16 10:49 07/15/16 10:49 07/15/16 10:49 07/15/16 10:49 07/15/16 10:49 Intake & Output 07/14/16 07/15/16 07/16/16 06:59 06:59 06:59 Intake Total 1215 560 Output Total 1540 1245 Balance -325 -685 Weight 76.1 kg 77.3 kg General appearance: PRESENT: no acute distress, cooperative Head exam: PRESENT: normocephalic Eye exam: PRESENT: EOMI Mouth exam: PRESENT: moist, neck supple Neck exam: ABSENT: JVD Respiratory exam: PRESENT: clear to auscultation mikey Cardiovascular exam: PRESENT: RRR. ABSENT: gallop GI/Abdominal exam: PRESENT: soft. ABSENT: distended, tenderness Extremities exam: ABSENT: pedal edema Neurological exam: PRESENT: alert, awake, oriented to person, oriented to place , oriented to time, oriented to situation Psychiatric exam: ABSENT: agitated, anxious Focused psych exam: ABSENT: restlessness Skin exam: PRESENT: dry, warm. ABSENT: cyanosis Results Laboratory Results: 07/13/16 04:03 07/14/16 03:56 Qualifiers PATEINT BEING DISCHARGED WITH ANY OF THE FOLLOWING DIAGNOSIS?: No Plan Discharge Plan: Follow-up with primary care physician at the [facility] in 1 week. Alcohol rehabilitation program in [place] as arranged and planned. Time Spent: Less than 30 Minutes
--- NOTE | 2016-07-20 18:15 | EKG REPORT ---
SEVERITY:- BORDERLINE ECG - SINUS TACHYCARDIA BORDERLINE T ABNORMALITIES, INFERIOR LEADS : Confirmed by: Abbe Swartz MD 20-Jul-2016 18:15:27
== END 2016-07-15 11:45 | disposition home or self-care (01) | DRG 897 ==
LOC: ER 16:39 → OBSVTOIN 23:21 → EH 23:21 → UNDOADMOB 23:34 → EH 23:34 → 3W 07-09 02:42 → ICU 07-09 06:30
PROVIDERS: ADMIT Internal Medicine; ATTEND Internal Medicine
DX: F10.231 Alcohol dependence with withdrawal delirium (principal); G40.509 Epileptic seizures related to external causes, not intractable, without status epilepticus; F17.210 Nicotine dependence, cigarettes, uncomplicated; F41.9 Anxiety disorder, unspecified; F32.9 Major depressive disorder, single episode, unspecified; R79.89 Other specified abnormal findings of blood chemistry; F43.10 Post-traumatic stress disorder, unspecified; Z78.1 Physical restraint status
CPT/HCPCS: 36415; 80048; 80053; 80307; 82962; 83735; 84100; 85025; 93005; 93010; 96361; 96374; 96375; 96376; 99285; J1630; J1644; J2060; J2270; J3360; J3411; J3480; J3486; J3490; J7030